=== PATIENT | female | born 2000 | race Caucasian/White ===

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

== ENCOUNTER → 2018-08-10 15:33 | Outpatient (CLI) | payer MEDICAID | END | disposition home or self-care (01) | LOC: D.LDO 15:33 | PROVIDERS: ATTEND Obstetrics & Gynecology | DX: O47.00 False labor before 37 completed weeks of gestation, unspecified trimester (principal) ==

== ENCOUNTER 2018-08-17 21:52 | Inpatient (IN) | payer MEDICAID ==
[2018-08-17 23:15] LABS: UDS - AMPHET NEGATIVE QUAL (NEGATIVE); UDS - BARB NEGATIVE QUAL (NEGATIVE); UDS - BENZO NEGATIVE QUAL (NEGATIVE); UDS - COCAINE NEGATIVE QUAL (NEGATIVE); UDS - OPIATE NEGATIVE QUAL (NEGATIVE); UDS - PCP NEGATIVE QUAL (NEGATIVE); UDS - THC NEGATIVE QUAL (NEGATIVE)
[2018-08-17 23:17] LABS: APPEARANCE CLEAR (CLEAR); BILIRUBIN NEGATIVE (NEGATIVE); COLOR YELLOW (YELLOW); GLUCOSE NEGATIVE (NEGATIVE); KETONE MODERATE mg/dL (NEGATIVE); NITRITE NEGATIVE (NEGATIVE); PROTEIN NEGATIVE (NEGATIVE); SPECIFIC GRAVITY 1.015 (1.005-1.020); UROBILINOGEN NORMAL (NORMAL)
[2018-08-17 23:19] LABS: BACTERIA FEW /hpf (NONE SEEN); EPITHELIAL CELLS 0-5 /hpf (0-5); RED CELLS - URINE NONE SEEN /hpf (0-5); WHITE CELLS - URINE 0-5 /hpf (0-5)
[2018-08-22 16:11] LABS: CHLAMYDIA TRACHOMATIS, NAA Negative (Negative)
== END 2018-08-18 03:15 | disposition home or self-care (01) | DRG 833 ==
LOC: D.LDO 21:52 → D.LD 08-18 00:15
PROVIDERS: ADMIT Obstetrics & Gynecology; ATTEND Obstetrics & Gynecology
DX: O26.893 Other specified pregnancy related conditions, third trimester (principal); Z3A.29 29 weeks gestation of pregnancy

== ENCOUNTER → 2018-09-20 17:40 | Outpatient (CLI) | payer MEDICAID | END | disposition home or self-care (01) | LOC: D.LDO 17:40 | PROVIDERS: ATTEND Obstetrics & Gynecology | DX: O26.899 Other specified pregnancy related conditions, unspecified trimester (principal); M79.89 Other specified soft tissue disorders ==

== ENCOUNTER 2018-10-09 17:53 | Inpatient (IN) | payer MEDICAID ==
[~2018-10-09] VITALS: Ht 154.9 cm; Wt 70.9 kg
--- NOTE | ~2018-10-09 | OP ---
PATIENT NAME: PAUL IVORY MEDICAL RECORD: [id number] :98 LOCATION:[id number] ADMISSION DATE:10/09/18 SURGEON: PB FRANKS MD DATE OF OPERATION: 10/10/2018 PREOPERATIVE DIAGNOSES: 1. Labor. 2. intolerance to labor. 3. Arrest of descent in the second stage. POSTOPERATIVE DIAGNOSES: 1. Labor. 2. intolerance to labor. 3. Arrest of descent in the second stage. 4. Laceration of the cervix and vagina at time of delivery. OPERATIVE PROCEDURE: A primary low transverse section, repair of uterine/vaginal lacerations. SURGEON: Pb Franks MD ESTIMATED BLOOD LOSS: 1500 cc. IV FLUIDS: Per anesthesia record. SPECIMENS: Included placenta and cord for gases. FINDINGS: 1. A viable male . 2. Placenta delivered manually intact, 3-vessel cord noted. 3. Extensive lacerations of the lower uterine segment and vaginal extensions from the uterine incision. 4. Normal adnexa bilaterally. PROCEDURE IN DETAIL: The patient was taken to the operating room where regional anesthesia was achieved without difficulty via epidural catheter. The patient was then prepped and draped in normal sterile fashion. SCDs were on and functioning normally. A Mcclain catheter had been placed and was draining freely. Following testing of the surgical site for adequate anesthesia, a Pfannenstiel skin incision was made, extended downwards to the underlying subcutaneous fat to level of the fascia. The fascia was excised in the midline and extended bilaterally using the Hernandez scissors. Superior and inferior aspect of the fascial incision were grasped with Yoselin clamps times 2, tented upward, and sharply dissected from the underlying rectus muscle using the Bovie cautery and the Hernandez scissors. Rectus muscle was then bluntly in the midline and the peritoneum was entered sharply at the superior aspect of the incision. The peritoneal incision was then extended laterally using the Metzenbaum scissors. A bladder flap was created by excising the anterior leaf of the broad ligament downward across the lower uterine segment. A low transverse incision was made and extended superiorly and inferiorly using the Pelosi method. The infant's head was found to be deep in the pelvis due to pushing in the second stage. Head was delivered atraumatically followed by the body. was bulb suctioned upon delivery. The cord was clamped times 2 and cut and the infant was handed to the awaiting nursery team. Cord was obtained for gases. The placenta was then removed manually intact, 3-vessel cord was noted. Vigorous OPERATIVE REPORT [id number] PAUL IVORY massage was performed of the uterus to improve uterine tone. Upon initial survey, the low transverse incision had multiple extensions downward into the vagina, but no evidence of any injury to the bladder. Following a vigorous massage and cleaning of the uterus, ring forceps were then used to demarcate the anterior lower vaginal defects as well as the uterine vessels, 0 Vicryl was then used to carefully approximate the superior aspect of the uterine incision back to the lower aspect of either the vaginal laceration or respective lower uterine incision. Multiple areas of the cervix were reapproximated to the posterior uterine wall. The uterine incision was then closed. Multiple areas of the vagina, which had been devascularized from the sidewall, were oversewn with 2-0 Vicryl. The patient was then placed in the frogleg position and I performed a vaginal exam to make sure that the vagina, cervix, and uterus were all patent. This was found to be the case. At this point, I regowned and gloved and continued the surgery. Multiple areas were again oversewn involving the vaginal lacerations. At this point, Gelfoam and thrombin were then placed circumferentially around the vagina with good hemostasis noted. Posterior cul-de-sac was then thoroughly irrigated and the uterus was replaced into the pelvis. Counts were correct times 2 for sponges, laps, and needles and the fascial incision was then repaired with 0 loop PDS times 1 and the skin repaired with tapan. The patient tolerated the procedure well. Due to the patient's low starting hemoglobin, the patient was transfused 1 unit of packed red blood cells intraoperatively. The patient was transferred to postanesthesia recovery stable without incident. TRANSINT:[id number] Voice Confirmation ID: [id number] DOCUMENT ID: [id number] PB FRANKS MD CC: [id number] DICTATION DATE: 10/14/18 1243 RETOUCHING OPERATOR: 10/14/18 1316 DIS IN 10/13/18 [id number] [place] [address]
[2018-10-09 18:54] LABS: HEMATOCRIT 31.1 % (36.0-48.0); HEMOGLOBIN 10.6 g/dL (12-16); MCHC 34.1 g/dL (31.0-37.0); MCV 88.1 fL (80.0-100.0); MEAN PLATELET VOLUME 11.2 fL (7.4-10.4); RBC 3.53 10x6/uL (4.00-5.40); RDW 12.2 % (11.5-14.5); WBC 11.4 10x3/uL (4.8-10.8)
[2018-10-09 19:03] LABS: APPEARANCE CLEAR (CLEAR); BILIRUBIN NEGATIVE (NEGATIVE); COLOR YELLOW (YELLOW); GLUCOSE NEGATIVE (NEGATIVE); KETONE NEGATIVE (NEGATIVE); NITRITE NEGATIVE (NEGATIVE); PROTEIN NEGATIVE (NEGATIVE); SPECIFIC GRAVITY 1.015 (1.005-1.020); UROBILINOGEN NORMAL (NORMAL)
[2018-10-09 19:04] LABS: UDS - AMPHET NEGATIVE QUAL (NEGATIVE); UDS - BARB NEGATIVE QUAL (NEGATIVE); UDS - BENZO NEGATIVE QUAL (NEGATIVE); UDS - COCAINE NEGATIVE QUAL (NEGATIVE); UDS - OPIATE NEGATIVE QUAL (NEGATIVE); UDS - PCP NEGATIVE QUAL (NEGATIVE); UDS - THC NEGATIVE QUAL (NEGATIVE)
[2018-10-10] VITALS (9 sets, daily range): BP systolic 106–134; BP diastolic 61–77; BMI 29.5
--- NOTE | 2018-10-10 06:51 | NUR ---
FUNDUS PALPATED, FIRM AND MIDLINE.
--- NOTE | 2018-10-10 07:20 | NUR ---
AM ASSESSMENT COMPLETED. PT HAS SCD'S ON, AND NOW CONNECTED TO PUMP. FUNDUS FIRM, U/2, SMALL RUBRA LOCHIA, NO CLOTS EXPELLED. ABDOMEN PALPATES SOFT. WYLIE CATH DRAINING CLEAR YELLOW URINE, WITH 500 ML'S NOTED IN UROMETER BAG. IVF'S INFUSING 20 UNITS PITOCIN OFF PUMP AT MODERATE RATE, SET TO INFUSE AT 125 ML/HR ON PUMP. PT REQEUSTS ICE WATER TO DRINK, DENIES NAUSEA, SOB, OR DIFFICULTY BREATHING. SEE FLOW SHEET FOR COMPLETE ASSESSMENT. PT HAS LARGE WHITE DRESSING OVER INCISION, C/D/I. ICE PACK PLACED OVER GOWN TO INCISION. SRUP X2, CALL LIGHT AND PHONE WITHIN REACH.
[2018-10-10 07:23] LABS: CALC OSMOLALITY 274 mosm/kg (275-300); CALCIUM 7.8 mg/dL (8.5-10.1); CARBON DIOXIDE 22.5 mmol/L (21.0-32.0); CHLORIDE - SERUM 104 mmol/L (98-107); CREATININE - SERUM 0.7 mg/dL (0.6-1.3); GLUCOSE 110 mg/dL (74-106); POTASSIUM - SERUM 3.3 mmol/L (3.5-5.1); SODIUM 138 mmol/L (136-145); UREA NITROGEN 7 mg/dL (7-18); eGFR NON AFRICAN AMERICAN > 90 mL/min (90-120)
--- NOTE | 2018-10-10 07:43 | NUR ---
DR. DUEÑAS PAGED FOR PAIN MEDICATION.
--- NOTE | 2018-10-10 08:30 | NUR ---
TO PT'S ROOM, PT IS REPORTING PAIN TO INCISIONAL AREA, STATES "THIS FUCKING HURTS!". WET CHEMISTRY ANALYST BUTTON NOTED TO BE LIT UP GREEN, EXPLAINED TO PT TIMING OF WET CHEMISTRY ANALYST BUTTON AND MEDICATION ADM, PT NOW PUSHING WET CHEMISTRY ANALYST BUTTON. PT'S SIG OTHER STATING "I AM TELLING HER TO PUSH IT, BUT SHE KEEPS FALLING ASLEEP". FUNDUS FIRM, U/1, SMALL RUBRA LOCHIA, NO CLOTS EXPELLED. PERIPAD REMAINS IN PLACE. POSITION CHANGED TO LEFT TILT, WITH PILLOWS PLACED BEHIND BACK FOR SUPPORT AND COMFORT. SRUP X2, CALL LIGHT AND PHONE WITHIN REACH. SIG OTHER AT BEDSIDE HOLDING INFANT.
--- NOTE | 2018-10-10 09:30 | NUR ---
TO PT'S ROOM, PT CONTINUES TO BE ON HER LEFT TILT, PT'S POSITION CHANGED TO SUPINE WITH HOB AT 30 DEGREES PER SELF. PT ENCOURAGED TO COUGH AND DEEP BREATHE, DOES THIS WELL, X 2. PT REPORTS THAT HER PAIN ISN'T GETTING BETTER, CONTINUES TO RATE PAIN AT THIS TIME 6/10 TO INCISIONAL AREA. FUNDUS FIRM, U/2, SMALL RUBRA LOCHIA, NO CLOTS. SIG OTHER CONTINUES TO BE AT BEDSIDE, ASLEEP. PT DENIES ALL OTHER NEEDS AT THIS TIME.
--- NOTE | 2018-10-10 09:55 | NUR ---
Annamaria Marroquin 10/10/18 Patient lying in bed did awake easily when CLC enter room. Patient eyes are barely open and she speaks in a low tone. Patient states is extremely tired and is in a lot of pain, lost a lot of blood. CLC informed patient I can visit with her tomorrow. She should rest to get her strength back. Please contact nursery staff as needed for help with .
--- NOTE | 2018-10-10 10:30 | NUR ---
INSTRUCTIONS PROVIDED ON USING INCENTIVE SPIROMETER, PT DEMONSTRATES THIS WELL, X 3. ICE WATER SERVED. PT STATES "THE PAIN HAS GOTTEN A LITTLE BETTER NOW". NOW RATING PAIN 4/10 TO INCISIONAL AREA. SRUP X2, CALL LIGHT AND PHONE WITHIN REACH.
[2018-10-10 11:04] LABS: BASOPHILS 0.1 % (0-2); EOSINOPHILS 0.1 % (0-7); HEMATOCRIT 29.4 % (36.0-48.0); HEMOGLOBIN 9.8 g/dL (12-16); IMMATURE GRANULOCYTES 0.4 % (0-5); LYMPHOCYTES 8.9 % (15-50); MCH 28.6 pg (26.0-34.0); MCHC 33.3 g/dL (31.0-37.0); MEAN PLATELET VOLUME 11.6 fL (7.4-10.4); MONOCYTES 5.4 % (2-11); NEUTROPHILS 85.1 % (40-80); PLATELET COUNT 171 10x3/uL (130-400); RBC 3.43 10x6/uL (4.00-5.40); RDW 13.8 % (11.5-14.5)
[2018-10-10 11:14] LABS: MCV 85.7 fL (80.0-100.0)
--- NOTE | 2018-10-10 12:30 | NUR ---
REPORT GIVEN TO SANDRA RIVERO RN.
--- NOTE | 2018-10-10 13:48 | NUR ---
PAD CHANGED AND PATIENT CLEANED. TRAVEL REGISTERED NURSE PACU DILAUDID DOSED WAS GIVEN PRIOR.
--- NOTE | 2018-10-10 14:21 | NUR ---
THIS NURSE TO ROOM -CALLED BY PT NURSE. CO HURTING AND FEELS "LIKE CANT BREATHE" INSTRUCTED NURSE TO CALL HOUSE SUPERVISIOR. PLACED ON PULSE OX AND SAT 99. SCANT LOCHIA NOTED ON PAD.
--- NOTE | 2018-10-10 16:30 | NUR ---
SHIFT REPORT RECEIVED FROM ROMY GONZALEZ RN
--- NOTE | 2018-10-10 17:00 | NUR ---
PT AWAKE, HOLDING BABY, VISITING WITH A LOT OF FAMILY AND FRIENDS AT THIS TIME, INFORMED PT THAT I WILL BE BACK LATER TO DO ASSESSMENT, PT VERBALIZES UNDERSTANDING, DENIES NEEDS AT THIS TIME
--- NOTE | 2018-10-10 17:55 | NUR ---
PT'S FAMILY MEMBER OR FRIEND AT VICE PRESIDENT SALES, REPORTS PT IS HURTING, ASKED ME ABOUT TORADOL, INFORMED HER THAT I WILL BE IN SHORTLY TO TALK TO PT ABOUT THE TORADOL
--- NOTE | 2018-10-10 18:10 | NUR ---
PT BABY, PT GAVE ME PERMISSION TO TALK TO HER ABOUT THE TORADOL IN FRONT OF FAMILY AND FRIENDS, PT INFORMED THAT TORADOL WAS NOT PRESCRIBED DUE TO RECEIVING 2 UNITS OF PRBC IN THE OR, PT VERBALIZES UNDERSTANDING, PT INST ON AND VERBALIZES UNDERSTANDING OF DEPUTY EDITOR IN CHIEF, PUSHES BUTTON AT THIS TIME
--- NOTE | 2018-10-10 19:20 | NUR ---
PT CONTINUES TO BREASTFEED, WILL HUGO RN IN ROOM AT THIS TIME
--- NOTE | 2018-10-10 20:10 | NUR ---
ASSESSMENT OR FLOW SHEET, VS OBTAINED, IV IN LEFT WRIST INTACT WITH NO REDNESS OR EDEMA INFUSING VIA PUMP NS WITH PITOCIN AT 125 ML/HR, DILAUDID DIRECTOR CORPORATE SALES TO DELIVER 0.2MG/10MINS PERS MD ORDERS, PT RATES INC PAIN 11/14, PT INST ON AND VERBALIZES UNDERSTANDING OF DIRECTOR CORPORATE SALES, FF, ML, U/U, LITE BLEEDING NOTED, WITH NO CLOTS, PINK PAD, BLUE CHUX AND ALIDA PAD CHANGED, WYLIE CATH INTACT DRAINING DARK YELLOW URINE, PT DENIES FLATUS, TALKED TO PT ABOUT POC FOR TOMORROW, PT VERBALIZES UNDERSTANDING, BIKINI INC WITH LARGE DRESSING CDI WITH NO DRAINAGE NOTED, FRESH ICE PACK, SCD'S ON AND WORKING PROPERLY, PT DENIES NEEDS, DINNER TRAY REMOVED, FEMALE FAMILY MEMBER HOLDING BABY, FOB AT BEDSIDE
--- NOTE | 2018-10-10 21:09 | NUR ---
PT HOLDING BABY, FOB AND FAMILY AT BEDSIDE, DENIES NEEDS AT THIS TIME
--- NOTE | 2018-10-10 22:29 | NUR ---
PT HOLDING BABY, , FEMALE FAMILY MEMBER ASSISTING PT, PT AND FEMALE FAMILY MEMBER REFUSE ANY ASSISTANCE FROM THIS RN OR FOR ME TO CALL [facility] NURSE, PT DENIES NEEDS
--- NOTE | 2018-10-10 23:33 | NUR ---
NEW VIAL OF DILAUDID TO TELEPHONE OPERATOR PER MD ORDERS, SEE EMAR
[2018-10-11] VITALS (9 sets, daily range): BP systolic 105–118; BP diastolic 59–76
--- NOTE | 2018-10-11 00:15 | NUR ---
PT AWAKE, VS OBTAINED, NO VAG BLEEDING NOTED AT THIS TIME, PT RATES INC PAIN /10, DENIES NEEDS, SCD'S CONTINUE ON AND WORKING PROPERLY, FOB LAYING IN BED WITH PT, BABY IN OPEN CRIB CART AT BEDSIDE
--- NOTE | 2018-10-11 02:05 | NUR ---
PT AWAKE, FOB CHANGING BABIES DIAPER, NEW BAG OF NS WITH PITOCIN HUNG PER MD ORDERS, SEE EMAR, PT RATES INC PAIN 2-3/, A LITTLE HIGHER WHEN COUGHING, PT DENIES NEEDS
--- NOTE | 2018-10-11 04:10 | NUR ---
PT FAMILY TO DESK REQUESTING A CLEAN PINK PAD,PANTIES AND A BOTTLE FOR INFANT. PT REPORTS SHE IS READY TO AMBULATE IN THE HALLS. PT ASSISTED W/PUTTING PANTIES AND PAD ON. PT AMBULATES TO NURSERY WINDOWS. BED LINEN CHANGED WHILE PT IS UP AMBULATING. PT RETURNS TO ROOM. VOID COLLECTION TEACHING DONE. PT DENIES FURTHER NEEDS AT THIS TIME.
--- NOTE | 2018-10-11 04:30 | NUR ---
PT AWAKE, FOB IN BED WITH PT, VS OBTAINED, I&O'S COLLECTED, SCANT VAG BLEEDING NOTED, ALIDA PAD CHANGED, FRESH ICE PACK TO ABD, SCD'S CONTINUE ON AND WORKING PROPERLY, PT DENIES NEEDS, TRASH REMOVED
[2018-10-11 06:13] LABS: BASOPHILS 0.1 % (0-2); EOSINOPHILS 0.3 % (0-7); HEMATOCRIT 25.6 % (36.0-48.0); HEMOGLOBIN 8.5 g/dL (12-16); IMMATURE GRANULOCYTES 0.4 % (0-5); LYMPHOCYTES 9.9 % (15-50); MCH 28.4 pg (26.0-34.0); MCHC 33.2 g/dL (31.0-37.0); MCV 85.6 fL (80.0-100.0); MEAN PLATELET VOLUME 11.2 fL (7.4-10.4); MONOCYTES 5.7 % (2-11); NEUTROPHILS 83.6 % (40-80); PLATELET COUNT 160 10x3/uL (130-400); RBC 2.99 10x6/uL (4.00-5.40); WBC 15.7 10x3/uL (4.8-10.8)
--- NOTE | 2018-10-11 06:18 | NUR ---
DR DUEÑAS TO ROOM, REMOVES DRESSING, DISCUSSED POC WITH PT
--- NOTE | 2018-10-11 06:22 | NUR ---
SPOKE TO HUSSEIN IN LAB, INFORMED HER THAT DR DUEÑAS WAS WAITING ON PT'S BLOOD WORK
--- NOTE | 2018-10-11 07:00 | NUR ---
SHIFT REPORT TO VERNON NELSON RN
--- NOTE | 2018-10-11 07:45 | NUR ---
ASSESSMENT DONE. POC DISCUSSED WITH PT. DR DUEÑAS IN UNIT.
[2018-10-11 08:15] LABS: RAPID PLASMA REAGIN Non Reactive (Non Reactive)
--- NOTE | 2018-10-11 08:15 | NUR ---
REPORT TO Nathan SPENCE RN.
--- NOTE | 2018-10-11 09:00 | NUR ---
THIS RN AND Meche NLESON RN TO BEDSIDE FOR BLOOD VERIFICATION PER POLICY. INFUSION TEACHING GIVEN. PT'S CURRENT IV OF 20UNITS OF PITOCIN IN NS STOPPED AND DOWN AT THIS TIME. DILUADID MATCHER OFFBEARER DISCONTINUED W/8ML REMAINING TO BE WASTED. IV SITE WNL W/OUT REDNESS OR SWELLING. SITE FLUSHED. PREINFUSION VITAL SIGNS OBTAINED AND BLOOD TRANSFUSION INITIATED AT THIS TIME. PT PAIN ASSESSED AT 10/14. PAIN MEDICATION TEACHING DONE.PT'S BED IN LOW POSITION. SIDE RAILS UP X 2. CALL LIGHT AND PHONE AT PT'S SIDE.
--- NOTE | 2018-10-11 09:15 | NUR ---
15MIN VITAL SIGNS OBTAINED. SEE FLOWSHEET. IV SITE WNL. BLOOD INFUSION CONTINUES AT 175ML/HR. PT DENIES ANY COMPLAINTS OTHER THAN ABD PAIN.
--- NOTE | 2018-10-11 09:28 | NUR ---
Annamaria Marroquin 10/11/18 LE@ 8:10 S: Patient states last night ate about 5 or so minutes for each feeding but then will stop. States baby hasn't been given formula. States she isn't familiar with or how to do it. A nurse last night did try to help her but baby just slept. Verbally agrees to work on trying to latch infant for every feeding and to ask for help as needed. Denies pain when is latched to the breast. O: Patient lying in bed with spouse. Nursery nurse Kathia brought baby in room for feeding. CLC walked in room also to help latching infant. Infant awake and alert in crib. Asked patient how did feeding go last night with infant, how long has infant remained latch for feedings? It's important for to latch longer then 5 minutes. A normal feeding time can vary but not uncommon for to nurse longer than 15 minutes. takes time, practice, and patience. Explained breastmilk composition, benefits of skin to skin, position, how to verify infant is correctly latched to the breast, the importance of practicing responsive feeding, and supply and demand. Offered to help with latching . Explained how to hold to place in laid back position. latched on the right breast at 8:31 in cradle position. had round checks, mouth 140 degrees, and sucking in a rocking motion. Encouraged patient to stimulate as needed to wake to feed. Please ask for help as needed. A: Patient expresses has only been nursing 5 minutes at a time. P: CLC will informed nursery staff patient needs help with latching for feedings and infant has only been feeding for 5 minutes at a time. Patient will contact nursery staff as needed for help with . Eliz Hanley, CHERIE
--- NOTE | 2018-10-11 09:35 | NUR ---
ROUNDS MADE. PT CURRENTLY CONTINUING TO ATTEMPT BREASTFEDING AND NOW WITH INCREASED PAIN. PAIN MEDICATION TO BE ADMINISTERED. SEE EMAR. IV SITE WNL. BLOOD TRANSFUSION CONTINUES AT 175ML/HR. COLA SERVED. ROOM STRAIGTENED. [facility] TRAY REMOVED. DIFFICULTY WITH NURSING. INFANT SWADDLED TO COMFORT AND PLACED IN CRIB AT BEDSIDE. PT PLANS TO REST WHILE WAITING FOR PAIN MEDICATION TO RELIEVE PAIN. CURRENTLY RATES PAIN 7/10. BED LOW, SIDE RAILS UP X 2. CALL LIGHT AND PHONE AT PT'S SIDE.
--- NOTE | 2018-10-11 10:30 | NUR ---
ROUNDS MADE. PT RESTING QUIETLY W/EYES CLOSED. RESP EVEN AND UNLABORED. OPENS EYES SPONTANEOUSLY. NO NEEDS VOICED AT THIS TIME.
--- NOTE | 2018-10-11 11:30 | NUR ---
BLOOD TRANSFUSION COMPLETE. LINE FLUSHED W/NS AT RATE [id number]/[id number]. PT REPORTS HER PAIN IS "BETTER" AND SHE FEELS SLEEPY. VITAL SIGNS OBTAINED. SEE FLOWSHEET. ABD REMAINS DISTENDED. BOWEL SOUNDS HYPOACTIVE. PT TEACHING PROVIDED IN REGARDS TO AMBULATING TO ASSIST W/GETTING BOWELS MOVING. PRUNE JUICE COCKTAIL PROVIDED. PT ENCOURAGED TO REST DUE TO FACT SHE IS DOSING ON AND OFF AT THIS TIME AND AFTER SHE NAPS, SHE WILL NEED TO AMBULATE IN THE LACY. PT AGREEABLE AT THIS TIME. INFANT PLACED IN OPEN CRIB AT BEDSIDE. PT'S BED IN LOW POSITION, SIDE RAILS UP X 2. CALL LIGHT AND PHONE AT BEDSIDE.
--- NOTE | 2018-10-11 14:33 | NUR ---
REPORT OF PT CO GAS TO DR FISH MED CARE MANAGER AT OFFICE.
[2018-10-11 14:36] LABS: MCH 28.5 pg (26.0-34.0); MCHC 33.7 g/dL (31.0-37.0); MCV 84.6 fL (80.0-100.0); RDW 14.3 % (11.5-14.5); WBC 18.5 10x3/uL (4.8-10.8)
[2018-10-11 14:37] LABS: HEMATOCRIT 32.9 % (36.0-48.0); HEMOGLOBIN 11.1 g/dL (12-16); RBC 3.89 10x6/uL (4.00-5.40)
--- NOTE | 2018-10-11 15:30 | NUR ---
THIS RN TO BEDSIDE TO SALINE LOCK IV SITE AND D/C WYLIE. APPROX [id number] EMPTIED FROM WYLIE BAG AND UROMETER. PT TOLERATED WELL.
--- NOTE | 2018-10-11 16:00 | NUR ---
dr galdamez calls unit to check on pt- no new orders.
--- NOTE | 2018-10-11 16:45 | NUR ---
AMBULATING IN HALLWAY.
--- NOTE | 2018-10-11 17:26 | NUR ---
Nathan SPENCE RN LEAVES UNIT- REPORT RECEIVED.
--- NOTE | 2018-10-11 17:40 | NUR ---
up to bathroom- voided 100cc urine -states she has already voided x1 more time.
--- NOTE | 2018-10-11 17:41 | NUR ---
requesting pain medication- states is having some pain in shoulder. explained that pain med at 1800. encouraged to lay on lt side.
--- NOTE | 2018-10-11 17:57 | NUR ---
resting on lt side- states that she is passing a little gas.
--- NOTE | 2018-10-11 18:32 | NUR ---
entered room- looking at cell phone. states just woke up from a little nap. states would like pain medication. rates pain a 3 when laying but gets worse when up and moving, med given.
--- NOTE | 2018-10-11 19:00 | NUR ---
REPORT TO PM SHIFT.
--- NOTE | 2018-10-11 19:51 | NUR ---
ROUNDS MADE, PT LAYING IN BED, INFORMED PT THAT I WILL BE BACK SHORTLY TO DO ASSESSMENT, PT VERBALIZES UNDERSTANDING, PT STATES "I'M GOING TO GET UP AND WALK AROUND FOR A FEW MINUTES", RATES INC PAIN 08/14, DENIES NEEDS AT THIS TIME
--- NOTE | 2018-10-11 20:00 | NUR ---
PT AMB IN LACY, GAIT STEADY, FOB AT SIDE, BABY TO NSY VIA OPEN CRIB CART
--- NOTE | 2018-10-11 20:23 | NUR ---
PT BACK IN ROOM, REPORTS VOIDING, VOIDED WITH NO DIFFICULTY, INFORMED PT THAT I AM GOING TO CHECK ON HER MEDS AND BE BACK IN A FEW MINUTES
--- NOTE | 2018-10-11 20:25 | NUR ---
BABY TO ROOM VIA OPEN CRIB CART PER ESPERANZA VIDES, RN
--- NOTE | 2018-10-11 21:12 | NUR ---
PT SITTING ON SIDE OF BED, PT LAYS DOWN, ASSESSMENT PER FLOW SHEET, VS OBTAINED, FF, ML, U/1, PT REPORTS MOD BLEEDING, ALIDA PAD NOTED TO HAVE SCANT VAG BLEEDING ON IT, REPORTS CHANGING ALIDA PAD BEFORE I CAME ON, EMPTIED 100 MLS OF LIGHTLY BLOOD TINGED URINE FROM [place]AT, PT REPORTS "A LITTLE" FLATUS, MORE BELCHING, NO BM AND VOIDED WITH NO DIFFICULTY, BIKINI INC WITH CHUCK CDI WITH NO DRAINAGE NOTED, ALIDA PAD PLACED OVER INC FOR COMFORT AND MOISTURE CONTROL, INFORMED PT THAT I AM GOING TO CALL DR DUMONT REGARDING HEART RATE, PT VERBALIZES UNDERSTANDING, ADM TORADOL PO AND FLUSHED SALINE LOCK PER MD ORDERS, SEE EMAR, PT DENIES FURTHER NEEDS, FOB AND AT BEDSIDE
--- NOTE | 2018-10-11 21:35 | NUR ---
CALLED DR DUMONT, REPORT OF TRENDING HEART RATE, LAB FROM THIS MORNING AND THIS AFTERNOON, ORDERS FOR A STAT H&H AND TO NOTIFY HIM WITH RESULTS
--- NOTE | 2018-10-11 21:40 | NUR ---
LAB NOTIFIED FOR STAT H&H
--- NOTE | 2018-10-11 21:53 | NUR ---
LAB TO ROOM FOR BLOOD DRAW
[2018-10-11 22:05] LABS: HEMATOCRIT 28.5 % (36.0-48.0); HEMOGLOBIN 9.8 g/dL (12-16)
--- NOTE | 2018-10-11 22:13 | NUR ---
DR DUMONT NOTIFIED OF LAB RESULTS, ORDERS FOR DULCOLAX SUPPOSITORY FOR DISTENTION, PT'S REPORT OF "A LITTLE FLATUS", AND RIGHT SHOULDER PAIN, ALSO ORDERED FABRICIOIEN TO HELP PT REST TONIGHT
--- NOTE | 2018-10-11 22:40 | NUR ---
PT INFORMED OF ORDERS, PT REFUSES SUPPOSITORY, REQUESTED PO, INFORMED PT THAT I WILL NOTIFY DR DUMONT AND LET HIM KNOW OF REQUEST
--- NOTE | 2018-10-11 22:44 | NUR ---
DR DUMONT NOTIFIED THAT PT REFUSES SUPPOSITORY AND REQUESTS PO MED, NO ORDERS FOR PO, ORDERS TO GO AHEAD ADM AMBIEN TO HELP PT REST TONIGHT
--- NOTE | 2018-10-11 22:46 | NUR ---
INFORMED PT WHAT DR DUMONT SAID, PT STILL REFUSES TO HAVE SUPPOSITORY, STATES "I REALLY DON'T WANT ANYTHING STUCK UP MY BUTT", PT DOES REQUEST AMBIEN TO HELP HER REST
--- NOTE | 2018-10-11 22:59 | NUR ---
VS OBTAINED, ADM BREE AND SAGE PER MD ORDERS, PT INST THAT BABY WILL HAVE TO GO TO NSY, PT VERBALIZES UNDERSTANDING, PT DENIES FURTHER NEEDS
--- NOTE | 2018-10-12 00:10 | NUR ---
TRISTIAN AT PIPE ORGAN MECHANIC, REQUESTED AND PROVIDED TOWELS, REPORTS THAT PT WANTS TO TAKE A SHOWER, INST TRISTIAN TO MAKE SURE HE STAYED AT HER SIDE SINCE SHE HAD TAKEN PAIN MED AND THE AMBIEN, HE STATES "OH YES, I'VE BEEN WATCHING OVER HER AND THE BABY", INST HIM TO USE CALL LIGHT FOR ANY ASSISTANCE
--- NOTE | 2018-10-12 00:40 | NUR ---
PT OUT OF SHOWER, REPORTS VOIDING, EMPTIED 300 MLS OF LIGHTLY BLOOD TINGED URINE FROM [place], PT REPORTS PAIN 09/14, STATES "I FEEL BETTER, I ACTUALLY PASSED SOME GAS", PT REQUESTED AND SERVED CUP OF ICE, DENIES FURTHER NEEDS
[2018-10-12 02:33] VITALS: BP 117/64
--- NOTE | 2018-10-12 02:33 | NUR ---
FOB OUT OF ROOM, REQUESTED BLANKET, THIS RN PROVIDES BLANKETS, PT REPORTS "FEELING COLD", AND IS SHIVERING, VS OBTAINED, TEMP WNL, ELEVATED HEART RATE, INFORMED PT THAT I WILL CALL DR DUMONT REGARDING HEART RATE
--- NOTE | 2018-10-12 02:35 | NUR ---
DR DUMONT NOTIFIED, REPORT OF PT'S ELEVATED HEART RATE, PREVIOUS LAB WORK, C/O NECK AND SHOULDER PAIN, AND MEDS ADMINISTERED, ORDERS TO DRAW STAT H&H AND CMP, CALL HIM WITH RESULTS
--- NOTE | 2018-10-12 02:42 | NUR ---
LAB NOTIFIED OF STAT DRAW
--- NOTE | 2018-10-12 02:53 | NUR ---
LAB TO ROOM FOR BLOOD DRAW
--- NOTE | 2018-10-12 03:05 | NUR ---
FOB AT LAB AIDE, REQUESTED AND PROVIDED DIAPERS FOR INFANT
[2018-10-12 03:30] LABS: HEMATOCRIT 30.4 % (36.0-48.0); HEMOGLOBIN 10.4 g/dL (12-16)
[2018-10-12 03:39] LABS: ALBUMIN 1.8 g/dL (3.4-5.0); ALKALINE PHOSPHATASE 100 U/L (46-116); ALT (SGPT) 10 U/L (10-68); BILIRUBIN - TOTAL 0.48 mg/dL (0.2-1.3); CALC OSMOLALITY 268 mosm/kg (275-300); CALCIUM 8.1 mg/dL (8.5-10.1); CARBON DIOXIDE 26.8 mmol/L (21.0-32.0); CHLORIDE - SERUM 102 mmol/L (98-107); CREATININE - SERUM 0.8 mg/dL (0.6-1.3); GLUCOSE 114 mg/dL (74-106); PROTEIN - SERUM 6.1 g/dL (6.4-8.2); SODIUM 135 mmol/L (136-145); UREA NITROGEN 7 mg/dL (7-18); eGFR NON AFRICAN AMERICAN > 90 mL/min (90-120)
--- NOTE | 2018-10-12 03:54 | NUR ---
DR DUMONT NOTIFED, REPORT OF LAB WORK, ORDERS FOR EKG AND TO CALL HIM IF EKG ABNORMAL
--- NOTE | 2018-10-12 03:57 | NUR ---
RESP NOTIFIED OF STAT EKG
--- NOTE | 2018-10-12 04:08 | NUR ---
ZEINA FROM RESP AND THIS RN IN ROOM, EKG OBTAINED, FOB HOLDING BABY
--- NOTE | 2018-10-12 04:11 | NUR ---
DR DUMONT NOTIFIED OF EKG RESULTS, ORDERS FOR CARDIAC ENZYMES
[2018-10-12 04:15] VITALS: BP 121/79
--- NOTE | 2018-10-12 04:19 | NUR ---
SPOKE TO NEYMAR IN LAB REGARDING ORDERS FOR CARDIAC ENZYMES, NEYMAR IN LAB SAID THEY CAN USE THE SAME LAB DRAW FROM [facility], I INFORMED HIM THAT THIS IS A STAT ORDER
--- NOTE | 2018-10-12 04:33 | NUR ---
DR DUMONT CALLS UNIT, ORDERS FOR CTA CHEST WITH CONTRAST TO RULE OUT PE, STAT AND TO CALL HIM WITH RESULTS
--- NOTE | 2018-10-12 04:35 | NUR ---
SPOKE TO TAMIKO IN RADIOLOGY, INFORMED HER WHAT DR DUMONT ORDERED, I INFORMED HER THAT PT HAD AN 18 GUAGE IN LEFT HAND, SHE SAID SHE WAS NOT ABLE TO USE THE HAND AND THAT ANOTHER IV NEEDED TO BE STARTED, WHEN IV STARTED, CALL AND LET HER KNOW
[2018-10-12 04:38] LABS: CKMB 0.3 U/L (0.0-3.6); CREATINE KINASE 115 UL (21-215); PRO BNP 203 pg/mL (0-125)
[2018-10-12 04:40] LABS: TROPONIN-I < 0.017 ng/mL (0.000-0.060)
--- NOTE | 2018-10-12 04:50 | NUR ---
WILL BOLANOS RN ATTEMPTED IV WITH NO SUCCESS
--- NOTE | 2018-10-12 05:01 | NUR ---
FABIO MURRAY RN FROM L&D ATTEMPTED IV WITH NO SUCCESS
--- NOTE | 2018-10-12 05:25 | NUR ---
SHARLENE LUIS RN INITIATED IV IN RIGHT FA, 20 GAUGE, 2ND ATTEMPT, FLUSHED WELL
--- NOTE | 2018-10-12 05:29 | NUR ---
TAMIKO FROM RADIOLOGY NOTIFIED THAT IV WAS INITIATED IN RIGHT FA
--- NOTE | 2018-10-12 05:36 | NUR ---
PT UP TO BR WITH ASSISTANCE PER FOB, PT RATES PAIN 01/14, WILL CHECK WITH RADIOLOGY ABOUT ADM PAIN MED
--- NOTE | 2018-10-12 05:38 | NUR ---
SPOKE TO TAMIKO IN RADIOLOGY, SHE REPORTS THAT I CAN ADM NORCO AND TORADOL PER MD ORDERS
--- NOTE | 2018-10-12 05:41 | NUR ---
PT OUT OF BR, TO RECLINER, ADM NORCO AND TORADOL PER MD ORDERS, SEE EMAR, PT INFORMED THAT TAMIKO FROM RADIOLOGY WILL BE DOWN SHORTLY, PT VERBALIZES UNDERSTANDING, DENIES FURTHER NEEDS
--- NOTE | 2018-10-12 05:57 | NUR ---
PT TO RADIOLOGY VIA WC WITH TAMIKO
--- NOTE | 2018-10-12 06:10 | NUR ---
DR DUEÑAS ON UNIT, LOOKS OVER LABS AND EKG, INFORMED HIM THAT PT IS UP IN RADIOLOGY AT THIS TIME
--- NOTE | 2018-10-12 06:20 | NUR ---
PT BACK FROM RADIOLOGY, PT TO ROOM, WILL HUGO, RN TO ROOM TO ASSIST PT
--- NOTE | 2018-10-12 06:25 | NUR ---
DR DUEÑAS ON L&D UNIT, INFORMED HIM THAT PT WAS BACK IN ROOM AND THAT THE RADIOLOGY REPORT SHOULD BE BROUGHT TO WOMENS IN APPROX 30 MINS OR SO, DR DUEÑAS SAID TO NOTIFY HIM WHEN RECEIVED
--- NOTE | 2018-10-12 07:15 | NUR ---
DR DUMONT ON UNIT. REVIEWS CT REPORT. NO ORDERS RECEIVED. STATES WILL TALK WITH DR DUEÑAS.
[2018-10-12 07:50] VITALS: BP 115/77
--- NOTE | 2018-10-12 07:50 | NUR ---
RECEIVED PT SITTING UP IN BED. SO IN BED WITH PT. PT OOB PER NURSE REQUEST FOR ASSESSMENT AND FOR PT TO REST COMFORTABLY. PT VSS. AAO X 3. VS NOTED. HRRR WITHOUT AUDIBLE MURMUR. BBS CLEAR. BS HYPOACTIVE X 4. PT STATES PASSING VERY LITTLE GAS. ABDOMEN SOFT/DISTENDED. FUNDUS FIRM AT U/1. RUBRA LOCHIA SCANT AMT. ABDOMINAL INCISION WITHOUT REDNESS, SWELLING OR DRAINAGE NOTED. CHUCK INTACT. NEG HOMANS' SIGN. PPP. MILD, NON-PITTING EDEMA NOTED TO FEET. SL TO LEFT HAND AND RIGHT FA CLEAR. PT STATES ABDOMINAL CRAMPING OF "4" ON 0-10 PAIN SCALE. DENIES NEED FOR PAIN MED AT THIS TIME. PT ENCOURAGED TO AMBULATE IN HALLS AND USE INCENTIVE SPIROMETER HOURLY WHILE AWAKE. PT INSTRUCTED ON IMPORTANCE OF BOTH. PT VERBALIZES UNDERSTANDING. SR UP X2. CALL LIGHT IN REACH.
--- NOTE | 2018-10-12 07:50 | NUR ---
DR DUEÑAS TO ROOM. DISCUSSES POC WITH PT.
--- NOTE | 2018-10-12 08:15 | NUR ---
ANTONIO AT DR SHORT'S OFFICE NOTIFIED OF ORDERED CONSULT. STATES WILL NOTIFY DR SHORT.
--- NOTE | 2018-10-12 08:21 | NUR ---
FOB IN BED WITH PT. ENCOURAGED FOB TO USE PULL OUT BED AND ALLOW PT MORE ROOM IN PATIENT BED.
--- NOTE | 2018-10-12 08:44 | NUR ---
TED MARKHAM FROM DR SHORT'S OFFICE VISITS WITH PT.
--- NOTE | 2018-10-12 09:15 | NUR ---
PT LYING TO LEFT SIDE IN BED. EYES CLOSED. RESP NON-LABORED. PT NOT DISTURBED TO ALLOW FOR REST. SR UP X2. CALL LIGHT IN REACH. SO IN PULL OUT CHAIR BESIDE PT BED.
[2018-10-12 09:34] VITALS: Ht 154.9 cm; Wt 70.9 kg
--- NOTE | 2018-10-12 09:52 | NUR ---
PT C/O ABDOMINAL CRAMPING OF "9" ON 0-10 PAIN SCALE. NORCO 10/325 GIVEN PO ORDERED. PT INSTRUCTED ON MED. VERBALIZES UNDERSTANDING. PT DECLINES NICOTINE PATCH.
--- NOTE | 2018-10-12 10:10 | NUR ---
Annamaria Marroquin 10/12/18 O: Patient sleeping in room did not wake when enter. All in room are sleeping. Left patient undisturbed. Eliz Hanley, CLC
--- NOTE | 2018-10-12 10:33 | NUR ---
STAFF HERE TO PERFORM ECHO. STATES SO WILL NOT WAKE UP. THIS NURSE TO ROOM. SO AWAKENED. INFORMED OF TEST NEEDING TO BE PERFORMED. REFUSES TO MOVE FROM SLEEP CHAIR BETWEEN DOOR AND PT BED. SECURITY NOTIFIED.
--- NOTE | 2018-10-12 10:37 | NUR ---
SECURITY TO MARCO- Talya MONREAL, NINO MARADIAGA, AND BIJAL CONTRERAS.
--- NOTE | 2018-10-12 10:39 | NUR ---
SO WALKS OFF UNIT WITH SECURITY FOLLOWING. MIHIR MONREAL STATES SO NOT TO RETURN TO HOSPITAL AND IF HE RETURNS TO CALL POLICE DEPARTMENT.
--- NOTE | 2018-10-12 10:45 | NUR ---
CARDIO NEURO STAFF TO ROOM TO OBTAIN ORDERED ECHO.
--- NOTE | 2018-10-12 11:54 | NUR ---
PT C/O ABDOMINAL CRAMPING AND INCISIONAL PAIN OF "7" ON 0-10 PAIN SCALE. TORADOL 10 MG GIVEN PO ORDERED. PT INSTRUCTED ON MED. VERBALIZES UNDERSTANDING.
--- NOTE | 2018-10-12 12:02 | NUR ---
SL TO LEFT HAND INFILTRATED. DC'D WITH CATHELON INTACT. PRESSURE BANDAGE TO SITE. SL TO RIGHT FOREARM FLUSHES EASILY WITH 10 ML NS. SITE CLEAR. PT LATRICE WELL.
--- NOTE | 2018-10-12 13:58 | NUR ---
PT C/O ABDOMINAL CRAMPING OF "6" ON 0-10 PAIN SCALE. NORCO 10/325 GIVEN PO ORDERED. PT INSTRUCTED ON MED. VERBALIZES UNDERSTANDING.
[2018-10-12 14:15] VITALS: BP 122/79
--- NOTE | 2018-10-12 14:15 | NUR ---
PT SITTING UP IN BED. PUMPING BREASTMILK. VSS. INSTRUCTED PT TO INFORM NURSE WHEN FINISHED. VERBALIZES UNDERSTANDING.
--- NOTE | 2018-10-12 15:00 | NUR ---
PT TRANSFERED VIA AMBULATORY TO ROOM 1278. PT ORIENTED TO ROOM, BED, AND CALL LIGHT. PT AMBULATORY IN ROOM AT THIS TIME. DENIES C/O OR NEEDS.
--- NOTE | 2018-10-12 15:42 | NUR ---
PT REQUESTS AND RECEIVES CUP OF ICE.
--- NOTE | 2018-10-12 17:30 | NUR ---
PT LYING SUPINE IN BED. EYES CLOSED. RESP NON-LABORED. PT NOT DISTURBED TO ALLOW FOR REST. SR UP X2. CALL LIGHT IN REACH.
--- NOTE | 2018-10-12 18:34 | NUR ---
PT CALLS ON LIGHT. REQUESTS AND RECEIVES BOTH MOTRIN 600 MG AND NORCO 10/325 PO ORDERED. PT INSTRUCTED ON MEDS. VERBALIZES UNDERSTANDING.
--- NOTE | 2018-10-12 19:23 | NUR ---
ROUNDS MADE, PT VISITING WITH FAMILY MEMBER, INFORMED PT THAT I WILL BE BACK SHORTLY TO DO ASSESSMENT, PT VERBALIZES UNDERSTANDING, DENIES NEEDS AT THIS TIME
[2018-10-12 20:05] VITALS: BP 112/69
--- NOTE | 2018-10-12 20:05 | NUR ---
ASSESSMENT PER FLOW SHEET, VS OBTAINED, SALINE LOCK IN RIGHT FA INTACT WITH NO REDNESS OR EDEMA, FF, ML, U/1, PT REPORTS SCANT VAG BLEEDING WITH NO CLOTS, BIKINI INC WITH CHUCK CDI WITH NO DRAINAGE NOTED, PT DENIES FLATUS, NO BM AND VOIDING WITH NO DIFFICULTY, PT REQUESTED AND PROVIDED SHIRT, PT DENIES FURTHER NEEDS, FEMALE FAMILY MEMBER HOLDING INFANT
--- NOTE | 2018-10-12 21:29 | NUR ---
PT RESTING WITH LIGHTS OFF, REPORTS THAT PAIN IS STARTING TO COME BACK, INFORMED PT THAT I WILL ADM PAIN MED AT 10:30PM WHEN DUE, PT VERBALIZES UNDERSTANDING, DENIES FURTHER NEEDS
--- NOTE | 2018-10-12 21:46 | NUR ---
PT AMB OFF UNIT, GAIT STEADY
--- NOTE | 2018-10-12 21:52 | NUR ---
PT BACK TO ROOM, INFANT TO ROOM PER WILL HUGO RN
--- NOTE | 2018-10-12 23:36 | NUR ---
PT AMB OFF UNIT WITH MOM, GAIT STEADY
--- NOTE | 2018-10-13 00:06 | NUR ---
PT BACK ON UNIT, TO ROOM, MOM AT SIDE
[2018-10-13 00:19] VITALS: BP 118/68
--- NOTE | 2018-10-13 00:19 | NUR ---
PT JUST GOT BACK INTO BED, VS OBTAINED, ADM MOTRIN PER MD ORDERS, SEE EMAR, REQUESTED AND PROVIDED TOWELS, WASH CLOTHS, AND EXTRA BOTTLES, PT DENIES FURTHER NEEDS
--- NOTE | 2018-10-13 00:19 | NUR ---
LATE ENTRY: PT REPORTS HAVING A LARGE BM AND PASSING GAS, PT STATES "I FEEL A LOT BETTER"
--- NOTE | 2018-10-13 02:51 | NUR ---
PT AWAKE, VS OBTAINED, ADM PAIN MED PER MD ORDERS, SEE MAR, PT'S MOM AND WILL BOLANOS RN HAD SLIGHT CONFLICT, SEE NSY NOTES, PT DENIES FURTHER NEEDS
--- NOTE | 2018-10-13 04:50 | NUR ---
PT RESTING WITH EYES CLOSED, RESP QUIET, NO DISTRESS NOTED, LEFT UNDISTURBED AT THIS TIME, PT'S MOM REQUESTED AND PROVIDED 2 BABY BLANKETS AND SHIRT, CHANGING AT THIS TIME, DENIES FURTHER NEEDS
--- NOTE | 2018-10-13 07:00 | NUR ---
SHIFT REPORT TO ROMY GONZALEZ RN
--- NOTE | 2018-10-13 07:15 | NUR ---
PT AMBULATORY IN HALLWAY, WITH CUPS OF ICE/DRINKS IN HAND. PT REQUESTING COFFEE CREAMER, SERVED. PT SMILING, AND DENIES ALL OTHER NEEDS AT THIS TIME.
--- NOTE | 2018-10-13 07:20 | NUR ---
DR. DUEÑAS ON UNIT, AND TO PT'S ROOM TO SPEAK WITH PT.
[2018-10-13 09:00] VITALS: BP 111/66
--- NOTE | 2018-10-13 10:30 | NUR ---
PT AMBULATORY IN HALLWAYS, SMILING, DENIES ALL NEEDS AT THIS TIME. PT PROVIDED WITH EXTRA PERIPADS/PANTIES FOR DISCHARGE HOME.
[2018-10-13 12:10] VITALS: BP 110/70
--- NOTE | 2018-10-13 12:15 | NUR ---
PHONE CALL MADE TO DR. LOMELI, WITH REPORT GIVEN TO MD OF ECHOCARDIOGRAM RESULTS, AND MHR TODAY WITH VIATAL SIGNS. [facility], IF OK WITH DR. DUEÑAS.
--- NOTE | 2018-10-13 12:18 | NUR ---
DR. LEANA FERNANDEZ.
--- NOTE | 2018-10-13 12:20 | NUR ---
DR. DUEÑAS RETURNS PAGE, REPORT GIVEN TO MD DISCHARGE ORDER RECEIVED BY DR. LOMELI, IF OK WITH DR. DUEÑAS. TELEPHONE ORDER RECEIVED TO DISCHARGE PT HOME TO RETURN ON WEDNESDAY, PT WAS PREVIOUSLY TOLD BY MD, FOR STAPLE REMOVAL, AND THEN 2 WEEK F/U APPT NEEDED.
--- NOTE | 2018-10-13 13:15 | NUR ---
DISCHARGE INSTRUCTIONS PROVIDED TO PT, ALONG WITH COPIES, PT INSTRUCTIONS ON D/C SECTION, PRESCRIPTION GIVEN, COPY ON CHART, AND PP INSTRUCTIONS. PT DENIES QUESTIONS, AND PT'S RIDE IS HERE TO TAKE HER HOME.
--- NOTE | 2018-10-13 13:30 | NUR ---
PT OFF UNIT IN WHEELCHAIR IN STABLE CONDITION WITH IN CARSEAT, BY Nathan SPENCE RN TO PRIVATE VEHICLE.
--- NOTE | 2018-10-14 16:42 | EC ---
PATIENT:PAUL IVORY DATE OF SERVICE: 10/09/18 SEX: F MEDICAL RECORD: [id number] DATE OF : [birth year] LOCATION:[facility] AGE OF PATIENT: 18 ADMISSION DATE: 10/09/18 REFERRING PHYSICIAN: INTERPRETING PHYSICIAN: TYRESE HARDEN MD ECHOCARDIOGRAM REPORT ECHO CHARGES 4 ECHO COMPLETE Date: 10/12/18 CLINICAL DIAGNOSIS: SOB ECHOCARDIOGRAPHIC MEASUREMENTS (adult normal given) AC root (d.<3.7cm) 2.4 cm LV Septum d (<1.2 cm> 1.1 cm Valve Excursion 1.5 cm LV Septum (systole) 1.7 cm Left Atria (s.<4.0cm> 3.5 cm LVPW d(<1.2cm) 1.1 cm RV (d.<2.3cm) 1.9 cm LVPW (sytole) 1.7 cm LV diastole(<5.6CM) 4.5 cm MV E-F(>70mm/sec) cm LV systole 2.4 cm LVOT Diameter 1.9 cm MV exc.(>10mm) cm Est.ejection fraction (50-75%) % DOPPLER: LVIT cm/sec A 61.0 cm/sec E 118 cm/sec LA cm/sec RVSP 26.0 mmHg LVOT 110 cm/sec AOP1/2T m/s Asc. Ao 149 cm/sec RVOT 87.0 cm/sec RA cm/sec PA 115 cm/sec AV Gradient Peak 8.9 mmHg AV Mean 4.3 mmHg AV Area 1.7 cm MV Gradient Peak 8.4 mmHg MV Mean 3.6 mmHg MV Area cm COMMENTS: Golf Stud Riveter: Helen FRAUSTOOE Ferris Wheel Attendant: 1 Dr. Harden TAPE# PACS Pericardial Effusion N DATE OF SERVICE: 10/12/2018 ECHOCARDIOGRAM DATE OF SERVICE: 10/12/2018 FINDINGS: 1. Left ventricular chamber size is within normal limits. Left ventricular systolic function is normal. Overall ejection fraction estimated at 55% to 60%. 2. Left atrium, right atrium and right ventricular chamber sizes are within ECHOCARDIOGRAM REPORT [id number] PAUL IVORY normal limits. 3. Valvular structures have normal structure and motion. 4. Doppler interrogation reveals only trace mitral regurgitation that is not hemodynamically significant. No other valvular insufficiency or stenosis. Pulmonary systolic pressure is normal estimated at 26 mmHg. 5. No evidence of pericardial effusion or left ventricular thrombus. TRANSINT:[id number] Voice Confirmation ID: [id number] DOCUMENT ID: [id number] TYRESE HARDEN MD at 1642 CC: [id number] DICTATION DATE: 10/13/18 0837 COMMISSIONED SECURITY OFFICER: 10/13/18 0936 DIS IN 10/13/18 [facility] [address] [id number]
== END 2018-10-13 13:30 | disposition home or self-care (01) | DRG 786 ==
LOC: D.LDO 17:53 → D.WS 18:26 → D.LD 18:26 → D.WS 10-10 07:10 → D.LD 10-12 15:00
PROVIDERS: Obstetrics & Gynecology; ADMIT Obstetrics & Gynecology; ATTEND Obstetrics & Gynecology
PROC: 0KQM0ZZ Repair Perineum Muscle, Open Approach (ICD-10-PCS; 2018-10-10)
PROC: 10907ZC Drainage of Amniotic Fluid, Therapeutic from Products of Conception, Via Natural or Artificial Opening (ICD-10-PCS; 2018-10-10)
PROC: 10D00Z1 Extraction of Products of Conception, Low, Open Approach (ICD-10-PCS; principal; 2018-10-10 04:37)
DX: O60.14X0 Preterm labor third trimester with preterm delivery third trimester, not applicable or unspecified (principal); O90.3 Peripartum cardiomyopathy; O71.4 Obstetric high vaginal laceration alone; Z3A.36 36 weeks gestation of pregnancy; Z37.0 Single live birth; O99.824 Streptococcus B carrier state complicating childbirth; O76 Abnormality in fetal heart rate and rhythm complicating labor and delivery; O90.89 Other complications of the puerperium, not elsewhere classified; R00.0 Tachycardia, unspecified; O99.344 Other mental disorders complicating childbirth; O62.1 Secondary uterine inertia

== ENCOUNTER 2019-12-27 21:45 | Emergency (ER) | payer SELFPAY ==
[~2019-12-27] VITALS: Ht 154.9 cm; Wt 47.7 kg
[2019-12-27 22:02] VITALS: BP 136/70; Ht 154.9 cm; Wt 47.7 kg
[2019-12-27 22:32] LABS: BILIRUBIN NEGATIVE (NEGATIVE); GLUCOSE NEGATIVE (NEGATIVE); KETONE NEGATIVE (NEGATIVE); NITRITE NEGATIVE (NEGATIVE); UROBILINOGEN NORMAL (NORMAL)
== END 2019-12-27 23:21 | disposition home or self-care (01) ==
LOC: D.ER 21:45
PROVIDERS: Family Medicine
DX: Z20.2 Contact with and (suspected) exposure to infections with a predominantly sexual mode of transmission (principal); J45.909 Unspecified asthma, uncomplicated; R30.0 Dysuria; N89.8 Other specified noninflammatory disorders of vagina